=== PATIENT | male | born 1980 | race African-American/Black ===

== ENCOUNTER 2017-05-26 15:00 | Emergency (ER) | payer OTHER ==
[~2017-05-26] VITALS: Ht 180.3 cm; Wt 89.8 kg
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
[~2017-05-26 15:00] MED LIST: KEFLEX250 M1 PO; KEPPRA750 MG; KEPPRA750 MG PO; LYRICA; TRILEPTAL PO; VICODIN 5/500 T1 TAB PO
== END 2017-05-26 19:01 | disposition home or self-care (01) ==
LOC: CFTX 15:00 → CED 15:00 → CFTX 16:27
DX: S13.9XXA Sprain of joints and ligaments of unspecified parts of neck, initial encounter (principal); S33.8XXA Sprain of other parts of lumbar spine and pelvis, initial encounter; I10 Essential (primary) hypertension; F17.210 Nicotine dependence, cigarettes, uncomplicated; V43.52XA Car driver injured in collision with other type car in traffic accident, initial encounter; Y92.524 Gas station as the place of occurrence of the external cause
CPT/HCPCS: 72040; 72100; 99284